=== PATIENT | female | born 1985 | race Caucasian/White ===

== ENCOUNTER 2019-03-16 07:36 | Emergency (ER) | payer MEDICAID ==
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
[2019-03-16 08:33] LABS: PLATELET COUNT 265 10^3/uL (150-400)
[2019-03-16 15:27] VITALS: BP 138/79
--- NOTE | 2019-03-16 16:35 | ASMTTCLDSP ---
TLC Discharge Disposition Disposition: Answers: Discharge If Answers: Yes DISCHARGED: Patient/family given suicide hotline info & SAMHSA brochure? Disposition Notes: Notes: Pt will return home and stated she [facility]. Discharge Concerns/Recommendations: Notes: In consultation with [facility] ED physician, Som Gray MD it was concurred that pt does not appear to meet 27-65 criteria requiring psychiatric hospitalization as pt does not appear to be an imminent risk of harm to self/others/gravely disabled due to a mental illness condition. Pt was offered voluntary mental health admission yet pt declined. Pt stated commitment or ability to keep self safe, denied thoughts of self harm or harm to others. Pt expressed a desire to f/u with [facility]. Pt was given local hotline information and SAMA brochure After an Attempt and encouraged to follow up with [facility] and AA. Was patient given the Answers: Not applicable Inpatient Behavioral Health Prohibited Belongings List while in the ED? Date Signed: 03/16/2019 04:34 PM Electronically Signed By:Danielle Mays
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
== END 2019-03-16 15:29 | disposition home or self-care (01) ==
PROC: GZ11ZZZ Psychological Tests, Personality and Behavioral (ICD-10-PCS; principal; 2019-03-16)
DX: F32.9 Major depressive disorder, single episode, unspecified (principal); F10.20 Alcohol dependence, uncomplicated
CPT/HCPCS: 80305; G0480